=== PATIENT | female | born 1965 | race Caucasian/White ===

== ENCOUNTER → 2021-04-01 10:21 | Outpatient (BNVA) | payer BC, SELFPAY | PROVIDERS: Family Provider Internal Medicine; PCP Internal Medicine; Visit Provider Internal Medicine | DX: M48.9 Spondylopathy, unspecified (principal); D68.0 Von Willebrand disease; K58.0 Irritable bowel syndrome with diarrhea; Z00.00 Encounter for general adult medical examination without abnormal findings | CPT/HCPCS: 80053; 83550; 84443; 85049; 85384; 85610; 85730 ==

== ENCOUNTER 2021-06-10 15:29 | Outpatient (CLI) | payer BC, SELFPAY ==
--- NOTE | 2021-06-10 15:55 | MR_ITS ---
WS: [id number] MRI CERVICAL SPINE NONCONTRAST HISTORY: Chronic neck pain for 20 years. Bilateral arm tingling. COMPARISON: None available. Technique: Multiplanar, multisequence noncontrast imaging of the cervical spine. Posterior cervical alignment is normal. Disc desiccation throughout but most significant at C5-6 and C6-7. Hypertrophic osteophytes are noted most significant at C5-6. Additional disc protrusions are no adina centrally at T1-2, T2-3 and T3-4. The most significant at T3-4 with near contact on the ventral t hecal sac. Signal within the cervical cord is normal. Visualized posterior fossa is unremarkable. Craniocervical junction, C1 and C2 relationship, odontoid process and soft tissues are normal. C2-C3: No stenosis. Mild facet joint arthritis with marrow edema and a small amount of increased T2 s ignal surrounding the RIGHT facet joint. C3-C4: Normal. C4-C5: Normal. C5-C6: Diffuse osteophytic ridging with annular disc bulging. Osteophytes encroach upon the ventral t hecal sac effacing the CSF. Very minimal deformity of the ventral cervical cord. Disc osteophyte comp lexes extend into the neural foramen bilaterally, greatest on the LEFT. Mild central stenosis with mo derate bilateral foraminal stenosis, LEFT greater than RIGHT. C6-C7: Diffuse annular disc bulging and osteophytic ridging. Small disc osteophytes extend into the n eural foramen bilaterally. There is mild central and bilateral foraminal stenosis. Mild facet arthrit is. C7-T1: Mild annular disc bulge with a central disc protrusion. Disc osteophytes extend into the neura l foramen. Only mild bilateral foraminal stenosis. Paraspinal soft tissue are normal. MR/MR cervical spin wo con* [id number] IMPRESSION: 1. Mild central with moderate bilateral foraminal stenosis at C5-6. Disc osteo phyte contact on the ventral thecal sac and narrowing the foramina. Larger disc osteophyte in the LEFT foramen. 2. Mild central and bilateral foraminal stenosis at C6-7 due to disc and osteo phyte with no cord contact. 3. Mild foraminal stenosis at C7-T1. 4. Additional smaller central disc protrusions seen in the sagittal sequence a t T1-2, T2-3 and T3-4. Very minimal contact on the ventral thoracic cord at T3- 4. For further evaluation dedicated MRI of the thoracic spine could be obtained .
== END 2021-06-10 15:30 | disposition home or self-care (01) ==
PROVIDERS: PCP Internal Medicine; Visit Provider Internal Medicine
DX: G89.29 Other chronic pain (principal); M48.02 Spinal stenosis, cervical region; M25.78 Osteophyte, vertebrae; M48.03 Spinal stenosis, cervicothoracic region; M51.24 Other intervertebral disc displacement, thoracic region
CPT/HCPCS: 72141

== ENCOUNTER 2021-06-15 13:31 | Outpatient (CLI) | payer BC, SELFPAY ==
[2021-06-15 15:31] LABS: Basophils # 0.1 10^3/uL (0.0-0.1); Basophils % 0.7 %; Eosinophils # 0.3 10^3/uL (0.0-0.8); Hematocrit 43.2 % (37.0-47.0); Hemoglobin 14.2 g/dL (11.5-15.3); Lymphocytes # 3.7 10^3/uL (0.8-4.8); Lymphocytes % 26.8 %; Mean Corpuscular HGB Conc 32.9 g/dL (30.0-36.0); Mean Corpuscular Hemoglobin 30.5 pg (28.0-34.0); Mean Corpuscular Volume 92.9 fl (81-99); Mean Platelet Volume 9.3 fL (7.4-10.4); Monocytes # 0.8 10^3/uL (0.2-0.9); Monocytes % 6.1 %; Neutrophils # 8.82 10^3/uL (1.8-7.7); Nucleated Red Blood Cells % 0 %; Platelet Count 327 10^3/cmm (130-400); Red Blood Count 4.65 10^6/uL (4.1-5.3); Red Cell Distribution Width 13.6 % (12.1-15.1); White Blood Count 13.8 10^3/uL (4.0-10.0)
--- NOTE | 2021-06-15 18:44 | ONC CON_ITS ---
Dr. Cordero New Patient Note Patient: Winter Sheikh Unit #: [id number]: [id number] Dicatated By: Michael Cordero M.D.Date of Visit: Jun 15, 2021 Onc MED New Patient/Consult Referring Physician: Dr. Robe Valencia M.D. Chief Complaint: Von Willebrand's disease. History of Present Illness: This is a 56-year-old woman with known von Willebrand's disease. She was initially diagnosed with von Willebrand's disease around 1998. At the time she was living in [place], [place]. I do not have those records available. She had a prior history of easy bruising and heavy menstrual bleeding, and she also apparently had significant bleeding with her hysterectomy in 1992. She does not know the type of her von Willebrand's disease, but it would most likely be type I, as subsequent to the diagnosis she was given DDAVP prophylactically for procedures. She is being seen now because she has been undergoing evaluation by Dr. Hopper for neck problems, and she thinks she may be having surgery on her cervical spine. Her laboratory studies from 04/01/2021 included CBC showing hemoglobin 15.0 g, white blood cell count 8800, and platelet count 318,000. Her pro time was normal at 12.50 seconds with PTT mildly prolonged at 43.0 seconds and fibrinogen normal at 372 mg/dL. She says she is feeling fine. She does have some fatigue, but she has normal activity. ECOG score is 0. Appetite is variable, but her weight is stable. She has not had fever. She does have hot flashes, and she occasionally has sweating at night. She says she always has sinus drainage. She does not have sore throat or difficulty swallowing. She does not complain of cough, and she has not been having shortness of breath or chest pain. She occasionally has nausea. She has been taking pantoprazole for GERD. She has had chronic diarrhea associated with irritable bowel syndrome, but that seems to have resolved after starting on an oral iron supplement. She has no complaints with bladder function. She has joint pain in her hands and in her left knee. She has neck pain and she also has some soreness in her lower back. She has headaches at least once or twice a week. She has numbness in both hands. Past Medical History: Her medical history includes anxiety, anxiety/depression, bilateral carpal tunnel syndrome, chronic insomnia, degenerative arthritis/degenerative disease of the spine, gastroesophageal reflux disease, hyperlipidemia, iron deficiency anemia, irritable bowel syndrome, and von Willebrand's disease. She has a history of renal cell cancer. Past Surgical History: Her surgical/procedural history includes colonoscopy, arthroscopic left knee surgery in 2014, cholecystectomy in 2010, left nephrectomy in 2009, hysterectomy/bilateral salpingectomy-oophorectomy in 1992, and Caesarean section in 1988. Medications: Pantoprazole Sodium 1 Tablet (of 40 mg) Tablet, enteric coated Oral daily, tiZANidine HCl 1 Tablet (of 4 mg) Oral b.i.d., Zolpidem Tartrate 1 Tablet (of 10 mg) Oral at bedtime Allergies: Amoxicillin-Pot Clavulanate Social History: Ms. Sheikh is . She is employed by [employer], but she works from home. She has a history of smoking for 40 years, previously up to 1-1/2 packs of cigarettes daily. Beginning about 6 months ago she had cut down to 1/2 pack/day. She does not drink alcohol. Family History: Father had heart disease and COPD. He at age 72. Mother is still living at age 75. She has one sister who is in good health at age 54. Her maternal grandfather had lung cancer and her maternal grandmother had esophageal cancer. Patient is not aware of anyone in the family with von Willebrand's disease. Her only child, a daughter who is currently 33 years old, was tested and was found to be negative. Review Of Symptoms: Constitutional - She says she is feeling fine. She does have some fatigue, but she has normal activity. Appetite is somewhat variable, but her weight is stable. She has not had fever. She does have hot flashes and she occasionally has sweating at night. ECOG score is 0, Eyes - She is being followed for cataract in her left eye, ENMT - No hearing loss or tinnitus. She says she always has sinus drainage. No mouth sores. No sore throat or difficulty swallowing, Hematologic/Lymphatic - She does have some bruising, but not a lot. She has no other bleeding manifestations, Respiratory - No shortness of breath. No cough. No pleuritic pain or hemoptysis, Cardiovascular - No angina pain. No palpitations, Gastrointestinal - She occasionally has nausea.. No heartburn or acid reflux. She has had chronic diarrhea, but that seems to have resolved since she started an oral iron supplement. She has not been aware of any blood in the stool or black stools, Genitourinary (F) - No dysuria or hematuria. No urinary frequency. No urgency or incontinence, Musculoskeletal - She has arthritis pain in her knees and in her left knee. She also has having neck pain and she sometimes has soreness in her back, Integumentary - No skin rash or other skin changes, Neurologic - She has headache once or twice a week. No dizziness. She has numbness in both hands, Psychiatric - She has anxiety and depression. She has chronic insomnia. Vital Signs: Performed on Jun 15, 2021 14:22: 6, 0, 33.76 (HIGH), 1.85 sq.m, 62 in, 97 %, 83 /min, 18 /min, 135/80 mm(hg), 98.4 F, and 184.6 lbs (HIGH). Physical Examination: Constitutional - She appears to be in good general health, Eyes - Sclerae nonicteric. Conjunctivae clear, ENMT - No lesions noted in the oral cavity, Neck - No mass or thyromegaly, Hematologic/Lymphatic - No cervical, clavicular, or axillary adenopathy, Respiratory - Lungs are clear with good air movement bilaterally, Cardiovascular - Heart rhythm is regular. There is no murmur, gallop, or rub noted, Abdomen - Soft and non-tender. Liver and spleen are not enlarged. There is no abdominal mass or ascites noted and there is no inguinal adenopathy, Back/Spine - No spine or CVA tenderness noted, Extremities - No edema. Dorsalis pedis pulses are palpable bilaterally, Integumentary - No rashes. No suspicious skin lesions noted, Neurologic - No focal neurologic deficits noted. Problem List: 1. Von Willebrand's disease. 2. Iron deficiency anemia. 3. Hyperlipidemia. 4. Degenerative arthritis/degenerative disease of the spine. 5. GERD. 6. Irritable bowel syndrome. 7. History of renal cell cancer. 8. Chronic insomnia. 9. Anxiety/depression. Problems Addressed with this Encounter and Plan: Patient with known von Willebrand's disease. I do not have records indicate the type, but by history she has had mild disease, and it would most likely be type I. She will have additional laboratory studies today to include CBC and a von Willebrand's panel with multimer analysis. If the panel is consistent with type I disease, I will plan to give her a DDAVP challenge to verify response before ordering any preoperative prophylaxis. Signed By: Michael Cordero M.D. <<Signature on File>>
[2021-06-20 15:17] LABS: Factor Viii, Activity 69 % normal (50-180); Partial Thromboplastin Time, A 32 sec (23-32)
[2021-06-20 15:42] LABS: Von Willebrand Factor (Rcf) 117 % normal (42-200); Von Willebrand Factor Ag 129 % (50-217)
== END 2021-06-15 13:32 | disposition home or self-care (01) ==
LOC: ONCMED 13:37
PROVIDERS: PCP Internal Medicine; Visit Provider Internal Medicine Medical Oncology
DX: D68.0 Von Willebrand disease (principal); D50.9 Iron deficiency anemia, unspecified; F41.9 Anxiety disorder, unspecified; F32.A Depression, unspecified; K21.9 Gastro-esophageal reflux disease without esophagitis; E78.5 Hyperlipidemia, unspecified; M47.9 Spondylosis, unspecified; Z79.899 Other long term (current) drug therapy; Z85.528 Personal history of other malignant neoplasm of kidney
CPT/HCPCS: 36415; 85025; 85240; 85245; 85246; 85247; 99204

== ENCOUNTER → 2021-06-25 13:55 | Outpatient (BNVA) | payer BC, SELFPAY | PROVIDERS: PCP Internal Medicine; Referring Provider Internal Medicine; Visit Provider Orthopaedic Surgery | DX: M47.892 Other spondylosis, cervical region (principal) | CPT/HCPCS: 72050 ==

== ENCOUNTER → 2021-08-19 10:51 | Outpatient (BNVA) | payer BC, SELFPAY | PROVIDERS: PCP Internal Medicine; Referring Provider Orthopaedic Surgery; Visit Provider Specialist | DX: G56.00 Carpal tunnel syndrome, unspecified upper limb (principal) | CPT/HCPCS: 73110 ==

== ENCOUNTER 2022-01-13 09:05 | Outpatient (CLI) | payer BC, SELFPAY ==
[2022-01-13 10:09] LABS: Basophils # 0.1 10^3/uL (0.0-0.1); Basophils % 0.7 %; Eosinophils # 0.3 10^3/uL (0.0-0.8); Hemoglobin 14.2 g/dL (11.5-15.3); Lymphocytes # 4.1 10^3/uL (0.8-4.8); Mean Corpuscular Hemoglobin 31.1 pg (28.0-34.0); Mean Corpuscular Volume 94.1 fl (81-99); Mean Platelet Volume 9.1 fL (7.4-10.4); Monocytes # 0.7 10^3/uL (0.2-0.9); Monocytes % 6.3 %; Neutrophils # 5.75 10^3/uL (1.8-7.7); Neutrophils % 52.6 %; Nucleated Red Blood Cells % 0 %; Platelet Count 317 10^3/cmm (130-400); Red Blood Count 4.57 10^6/uL (4.1-5.3); Red Cell Distribution Width 13.6 % (12.1-15.1); White Blood Count 10.9 10^3/uL (4.0-10.0)
[2022-01-13 10:25] LABS: Partial Thromboplastin Time 35.1 SECONDS (23.9-36.7)
[2022-01-13 10:32] LABS: Slide Review Slide Review Perform
[2022-01-17 16:02] LABS: Factor VIII Activity Clotting 49 % normal (50-180)
[2022-01-17 16:32] LABS: Von Willebrand Factor AG 118 % (50-217); Von Willebrand Ristocetin(Rcf) 80 % normal (42-200)
== END 2022-01-13 09:06 | disposition home or self-care (01) ==
PROVIDERS: PCP Internal Medicine; Visit Provider Internal Medicine Medical Oncology
DX: D68.00 Von Willebrand disease, unspecified (principal)
CPT/HCPCS: 36415; 85025; 85240; 85245; 85246; 85730

== ENCOUNTER 2022-01-13 09:57 | Outpatient (CLI) | payer BC, SELFPAY | END 2022-01-13 09:58 | disposition home or self-care (01) | LOC: SPT 09:58 | PROVIDERS: PCP Internal Medicine; Visit Provider Specialist | DX: Z46.89 Encounter for fitting and adjustment of other specified devices (principal); G56.03 Carpal tunnel syndrome, bilateral upper limbs | CPT/HCPCS: 97760; L3908 ==

== ENCOUNTER 2022-01-29 05:38 | Day surgery (SDC) | payer BC, SELFPAY ==
[2022-01-28 09:56] VITALS: BMI 31.5
[2022-01-29] VITALS (7 sets, daily range): BP systolic 114–136; BP diastolic 72–97; PULSE 61–83; RESP 16–19; TEMP 36.1–36.6; O2SAT 93–98
[2022-01-29] MEDS: CELEcoxib 200 mg Capsule 400 MG PO (06:13)
[2022-01-29] MEDS: sodium chloride 0.9% 1,000 ML 30 ML IV (06:13)
--- NOTE | 2022-01-29 06:53 | P.HPUD_ITS ---
Surgery/Procedure H&P Update DATE OF PROCEDURE: January 29, 2022 DATE H&P PERFORMED: 01/13/22 H&P UPDATE INFORMATION: I have reviewed H&P completed within last 30 days, I have examined patient prior to procedure, No changes to prior documentation and H&P is in [facility] EMR on date indicated PREOP DIAGNOSIS: Left carpal tunnel syndrome PLANNED PROCEDURE: Operation Date: 01/29/22 07:00 Proposed Procedures p LEFT CARPAL TUNNEL RELEASE [id number],G56.00(Left) - Georgiana Sanotyo MD Related Problem List Diagnoses (1) Carpal tunnel syndrome, left:
[2022-01-29] MEDS: ceFAZolin 2,000 MG in sodium chloride 0.9% (plus) 50 ML 100 MG IV (07:03)
--- NOTE | 2022-01-29 07:30 | SUR.OPER ---
1087 asked Ayaka Perry RN about acetaminophen 1gm not given during preop, and nurse replied that she did not want it.
--- NOTE | 2022-01-29 07:43 | SUR.PREOP ---
Pre-operative Patient states she could not take Tylenol (ordered for pre-op) as she has history of Von Willebrand Disease and does not wish to take for this reason. Patient has allergy to Augmentin (vomiting), Ancef flagged for allergy. Dr. Santoyo called to verify order and ordered to give. Order placed and sent to patient.
--- NOTE | 2022-01-29 07:59 | ANES.PREANE2 ---
Pre-Anesthetic Assessment Height/Weight: Height 1.59 m Weight 79.379 kg Temp Pulse Resp BP Pulse Ox O2 Del Method 97.9 F 83 18 136/96 94 01/29/22 06:01 01/29/22 06:01 01/29/22 06:01 01/29/22 06:01 01/29/22 06:01 01/29/22 07:11 Preop Diagnosis: Left carpal tunnel syndrome Operation Date: 01/29/22 07:00 Proposed Procedures p LEFT CARPAL TUNNEL RELEASE [id number],G56.00(Left) - Georgiana Santoyo MD Familial anesthetic complications: none Was Beta Bill taken within 24 hours: N/A Was Clonidine taken within 24 hours: N/A Last intake: Intake Last Liquid Date 01/28/22 Last Liquid Time 01:30 Last Solid Date 01/28/22 Last Solid Time 22:30 Social No alcohol and No tobacco Exam alert, oriented x 3, clear to auscultation bilaterally and regular rate & rhythm Airway Submandibular: within normal limits Cervical ROM: within normal limits Mallampati: Class II Dentition: full CV/HEM Anemia Von Willebrand GI Gastroesophageal Reflux Disease Anesthetic Plan ASA status: 2 Anesthesia: Choice Medications/Allergies Home Medications Medication Instructions Recorded Confirmed Last Taken Type tizanidine 4 mg capsule 4 mg PO BID PRN muscle spasticity 05/28/21 01/29/22 01/28/22 20:30 Rx #180 caps zolpidem 10 mg tablet (Ambien) 10 mg PO .AT BEDTIME #30 tabs 11/02/21 01/29/22 01/28/22 20:30 Rx Bilateral Cock Up Splint #1 ea 01/13/22 01/13/22 Unknown Rx diphenhydramine HCl 25 mg tablet 50 mg PO BEDTIME PRN ALLERGIES 01/28/22 01/29/22 01/28/22 20:30 History (Benadryl Allergy) ferrous sulfate 325 mg (65 mg 325 mg PO DAILY 01/28/22 01/29/22 01/28/22 20:30 History iron) tablet (Iron (ferrous sulfate)) pantoprazole 40 mg tablet,delayed 40 mg PO DAILY 01/28/22 01/29/22 01/28/22 20:30 History release (Protonix) hydrocodone 5 mg-acetaminophen 325 1 tab PO Q4H PRN pain 7 days #30 01/29/22 Unknown Rx mg tablet tabs Allergies Allergy/AdvReac Type Severity Reaction Status Date / Time amoxicillin [From Augmentin] Allergy Mild ADR-Vomitin Verified 01/28/22 09:52 g clavulanic acid Allergy Mild ADR-Vomitin Verified 01/28/22 09:52 [From Augmentin] g Current Medications Generic Name Dose Route Start Last Admin Trade Name Freq PRN Reason Stop Dose Admin Sodium Chloride 1,000 mls @ 30 mls/hr 01/29/22 06:00 01/29/22 06:13 Sodium Chloride 0.9% IV 01/30/22 05:59 30 mls/hr .Q24H DANY Administration PFSH Anesthesia Medical History Bilateral carpal tunnel syndrome Chronic diarrhea Chronic pansinusitis Gastro-esophageal reflux disease without esophagitis Generalized anxiety disorder H/O malignant neoplasm of kidney 2008 Hyperlipidemia, unspecified Insomnia Iron deficiency anemia, unspecified Irritable bowel syndrome with diarrhea S/p nephrectomy LEFT- CANCER- 2008 Surgical History History of History of esophagogastroduodenoscopy (EGD) 07/06/2013- REFLUX ESOPHAGITIS, GASTRITIS S/P cholecystectomy S/P colonoscopy 07/06/2013- DIVERTICULOSIS 2009 S/P exploratory laparotomy S/P hysterectomy Family History Grandfather Cancer Grandmother Cancer Father Diabetes Hypertension Other Bleeding disorder Denies family history of Anesthesia complication Social History Smoking and tobacco status: current every day smoker History of recent travel: No Data Anesthesia Cardiac Studies: No Data to Display
--- NOTE | 2022-01-29 08:03 | P.OP_ITS ---
Operative Report Date of procedure: January 29, 2022 Pre-op diagnosis: Left carpal tunnel syndrome Post-op diagnosis: Left carpal tunnel syndrome Procedure done: Left carpal tunnel release Pathology: none sent Surgeon: Georgiana Santoyo Ocean Freight Forwarder: None Anesthesia: General (Per LMA, ASA 2) Estimated blood loss (mL): 3 Tourniquet time (min): 20 (At 250 mmHg) IV fluids (mL): 400 Urine output (mL): 0 (No Bustamante) Complications: None Findings: Severe compression accross the carpal canal Condition: stable Disposition: PACU Brief History: Winter Sheikh 56 year old female here today for left carpal tunnel release. She reports numbness, tingling and burning in her bilateral hands. She explains her symptoms are equal to both sides. The patient wished to proceed with left carpal tunnel release first as she feels it has the biggest impact on her activities of daily living. She would like to proceed with a right carpal tunnel release after she has recovered from the left. Procedure: The patient was brought to the operating theater. The patient had a general anesthesia per MAC, ASA 2. The tourniquet was elevated to 250 mmHg for a total tourniquet time of 20 minutes. The patient was also given Ancef 2 g preoperatively. The arm was then prepped and draped with DuraPrep in usual fashion with the arm draped free. A surgical pause was performed. At the time, the surgical pause, we confirmed the site and side of surgery. We also confirmed the patient's identity, appropriate and timely administration of preoperative antibiotics and preoperative surgical markings. An incision was then made along the thenar crease. The incision crossed the wri st joint in a curvilinear fashion. Dissection continued through skin and soft tissues using a scalpel. The palmaris longus was identified along with the transverse carpal ligament. Each of these was released carefully to avoid injury to the median nerve. We were able to dissect gently into the carpal canal which was noted to be quite tight with significant compression across the median nerve. The nerve was visualized and was an hourglass shape. The canal was subsequently palpated to assure there was no bony encroachment upon the canal. The canal was then palpated distally and proximally to assure that my small finger was passed easily without impingement. Finding this to be so, attention was directed to closure. The wound was irrigated with ropivacaine plain. It was then closed with 3-0 nylon in an interrupted mattress fashion. Sterile dressing was then placed consisting of Dermabond, OpSite, fluffed fluffs, sterile soft roll, and an Kehinde wrap. The tourniquet was released after 20 minutes. There were no complications. There were no specimens. The procedure was well tolerated. Plan is the patient will be discharged home. Related Problem List Diagnoses (1) Carpal tunnel syndrome, left:
--- NOTE | 2022-01-29 15:04 | ANE.PACU2 ---
Inpatient post-anesthesia follow up: Airway intact: Yes Vital signs: Temperature 97.6 F Pulse Rate 71 Respiratory Rate 16 Blood Pressure 128/97 Pulse Oximetry 96 Oxygen Delivery Me thod Room Air Oxygen Flow Rate 10 Fraction of Inspir ed Oxygen Hydration adequate: Yes Nausea and vomiting: No Pain level: 2 Mental status: Baseline
== END 2022-01-29 09:08 | disposition home or self-care (01) ==
PROVIDERS: PCP Internal Medicine; Visit Provider Specialist
PROC: (CPT 64721; principal; 2022-01-29 07:00)
DX: G56.02 Carpal tunnel syndrome, left upper limb (principal); F41.9 Anxiety disorder, unspecified; E78.5 Hyperlipidemia, unspecified; Z80.51 Family history of malignant neoplasm of kidney; K21.9 Gastro-esophageal reflux disease without esophagitis
CPT/HCPCS: 64721; J0690; J1100; J2250; J2405; J2704; J3010; J3490; J7030

== ENCOUNTER 2022-02-19 05:44 | Day surgery (SDC) | payer BC, SELFPAY ==
[2022-02-18 13:13] VITALS: BMI 32.9
[2022-02-19] VITALS (9 sets, daily range): BP systolic 115–154; BP diastolic 83–98; PULSE 60–74; RESP 12–18; TEMP 36.1–36.6; O2SAT 95–100
[2022-02-19] MEDS: sodium chloride 0.9% 1,000 ML 30 ML IV (06:18)
[2022-02-19] MEDS: CELEcoxib 200 mg Capsule 400 MG PO (06:24)
--- NOTE | 2022-02-19 06:33 | ANES.PREANE2 ---
Pre-Anesthetic Assessment Height/Weight: Height 1.57 m Weight 81.647 kg Temp Pulse Resp BP Pulse Ox O2 Del Method 97.6 F 71 18 146/97 96 02/19/22 06:09 02/19/22 06:09 02/19/22 06:09 02/19/22 06:09 02/19/22 06:09 02/19/22 06:05 Preop Diagnosis: Right carpal tunnel syndrome Operation Date: 02/19/22 07:00 Proposed Procedures p RIGHT CARPAL TUNNEL RELEASE [id number],G56.00(Right) - Georgiana Santoyo MD Familial anesthetic complications: None Was Beta Bill taken within 24 hours: N/A Was Clonidine taken within 24 hours: N/A Last intake: Intake Last Liquid Date 02/18/22 Last Liquid Time 22:30 Last Solid Date 02/18/22 Last Solid Time 20:30 Social Tobacco and No alcohol Exam alert, oriented x 3, clear to auscultation bilaterally and regular rate & rhythm Airway Mallampati: Class II Dentition: full CV/HEM vWF GI Gastroesophageal Reflux Disease Anesthetic Plan ASA status: 2 Anesthesia: General Risk of > 500 ml blood loss (7ml/kg in children): No Medications/Allergies Home Medications Medication Instructions Recorded Confirmed Last Taken Type tizanidine 4 mg capsule 4 mg PO BID PRN muscle spasticity 05/28/21 02/19/22 02/18/22 Rx #180 caps zolpidem 10 mg tablet (Ambien) 10 mg PO .AT BEDTIME #30 tabs 11/02/21 02/19/22 02/18/22 Rx Bilateral Cock Up Splint #1 ea 01/13/22 02/15/22 Unknown Rx diphenhydramine HCl 25 mg tablet 50 mg PO BEDTIME PRN ALLERGIES 01/28/22 02/19/22 02/18/22 History (Benadryl Allergy) ferrous sulfate 325 mg (65 mg 325 mg PO DAILY 01/28/22 02/19/22 02/18/22 History iron) tablet (Iron (ferrous sulfate)) pantoprazole 40 mg tablet,delayed 40 mg PO DAILY 01/28/22 02/19/22 02/18/22 History release (Protonix) Allergies Allergy/AdvReac Type Severity Reaction Status Date / Time amoxicillin [From Augmentin] Allergy Mild ADR-Vomitin Verified 02/15/22 09:07 g clavulanic acid Allergy Mild ADR-Vomitin Verified 02/15/22 09:07 [From Augmentin] g Current Medications Generic Name Dose Route Start Last Admin Trade Name Vu PRN Reason Stop Dose Admin Sodium Chloride 1,000 mls @ 30 mls/hr 02/19/22 06:15 02/19/22 06:18 Sodium Chloride 0.9% IV 02/20/22 06:14 30 mls/hr .Q24H DANY Administration PFSH Anesthesia Medical History Bilateral carpal tunnel syndrome Chronic diarrhea Chronic pansinusitis Gastro-esophageal reflux disease without esophagitis Generalized anxiety disorder H/O malignant neoplasm of kidney 2008 Hyperlipidemia, unspecified Insomnia Iron deficiency anemia, unspecified Irritable bowel syndrome with diarrhea S/p nephrectomy LEFT- CANCER- 2008 Surgical History History of History of esophagogastroduodenoscopy (EGD) 07/06/2013- REFLUX ESOPHAGITIS, GASTRITIS S/P cholecystectomy S/P colonoscopy 07/06/2013- DIVERTICULOSIS 2009 S/P exploratory laparotomy S/P hysterectomy Family History Grandfather Cancer Grandmother Cancer Father Diabetes Hypertension Other Bleeding disorder Denies family history of Anesthesia complication Social History Smoking and tobacco status: current every day smoker History of recent travel: No Data Anesthesia Cardiac Studies: No Data to Display
[2022-02-19] MEDS: ceFAZolin 2,000 MG in sodium chloride 0.9% (plus) 50 ML 100 MG IV (07:13)
--- NOTE | 2022-02-19 07:15 | W.PM.OPSUD ---
Surgery/Procedure H&P Update DATE OF PROCEDURE: February 19, 2022 DATE H&P PERFORMED: 02/15/22 H&P UPDATE INFORMATION: I have reviewed H&P completed within last 30 days, I have examined patient prior to procedure, No changes to prior documentation and H&P is in [facility] [place] on date indicated PREOP DIAGNOSIS: Right carpal tunnel syndrome PLANNED PROCEDURE: Operation Date: 02/19/22 07:00 Proposed Procedures p RIGHT CARPAL TUNNEL RELEASE [id number],G56.00(Right) - Georgiana Santoyo MD Related Problem List Diagnoses (1) Carpal tunnel syndrome on right:
--- NOTE | 2022-02-19 08:02 | P.OP_ITS ---
Operative Report Date of procedure: February 19, 2022 Pre-op diagnosis: Right carpal tunnel syndrome Post-op diagnosis: Right carpal tunnel syndrome Procedure done: Right carpal tunnel release Pathology: none sent Surgeon: Georgiana Santoyo Asbestos Worker Helper: None Anesthesia: General (Per LMA, ASA 2) Estimated blood loss (mL): 5 Tourniquet time (min): 22 (At 250 mmHg) IV fluids (mL): 550 Urine output (mL): 0 (No Bustamante) Complications: None Findings: Significant compression across the carpal canal with hourglass shape to the median nerve and fibrosis within the canal. The median nerve was adhered to the undersurface of the transverse carpal ligament. Condition: stable Disposition: PACU (Then to same-day surgery for discharge to home) Brief History: Winter Sheikh 56 year old female here today for right carpal tunnel release. She reports numbness, tingling and burning in her right hand. She has recovered very nicely from her left carpal tunnel release, and this is improved her quality of life and ability to perform activities of daily living. She has recovered from this and would like to proceed with right carpal tunnel release. Questions were answered in the office and consents were signed. In the preop holding area, the arm was marked. Procedure: The patient was brought to the operating theater. The patient had a general anesthesia per LMA, ASA 2. The tourniquet was elevated to 250 mmHg for a total tourniquet time of 22 minutes. The patient was also given Ancef 2 g preoperatively. The arm was then prepped and draped with DuraPrep in usual fashion with the arm draped free. A surgical pause was performed. At the time, the surgical pause, we confirmed the site and side of surgery. We also confirmed the patient's identity, appropriate and timely administration of preoperative antibiotics and preoperative surgical markings. An incision was then made along the thenar crease. The incision crossed the wris t joint in a curvilinear fashion. Dissection continued through skin and soft tissues using a scalpel. The palmaris longus was identified along with the transverse carpal ligament. Each of these was released carefully to avoid injury to the median nerve. We were able to dissect gently into the carpal canal which was noted to be quite tight with significant compression across the median nerve. The nerve was visualized and was an hourglass shape. Also, the nerve was noted to be fibrosed to the transverse carpal ligament. After release, the canal was subsequently palpated to assure there was no bony encroachment upon the canal.? The canal was then palpated distally and proximally to assure that my small finger was passed easily without impingement. Finding this to be so, attention was directed to closure. The wound was irrigated with ropivacaine plain. It was then closed with 3-0 nylon in an interrupted mattress fashion. Sterile dressing was then placed consisting of Dermabond, OpSite, fluffed fluffs, sterile soft roll, and an Kehinde wrap. The tourniquet was released after 20 minutes. There were no complications. There were no specimens. The procedure was well tolerated. Plan is the patient will be discharged home. Related Problem List Diagnoses (1) Carpal tunnel syndrome on right:
--- NOTE | 2022-02-19 14:01 | ANE.PACU2 ---
Inpatient post-anesthesia follow up: Airway intact: Yes Vital signs: Temperature 98 F Pulse Rate 65 Respiratory Rate 17 Blood Pressure 150/90 Pulse Oximetry 97 Oxygen Delivery Me thod Room Air Oxygen Flow Rate Fraction of Inspir ed Oxygen Hydration adequate: Yes Nausea and vomiting: No Pain level: 1 Mental status: Baseline
== END 2022-02-19 09:15 | disposition home or self-care (01) ==
PROVIDERS: PCP Internal Medicine; Visit Provider Specialist
PROC: (CPT 64721; principal; 2022-02-19 07:00)
DX: G56.01 Carpal tunnel syndrome, right upper limb (principal); K21.9 Gastro-esophageal reflux disease without esophagitis; E78.5 Hyperlipidemia, unspecified; F17.210 Nicotine dependence, cigarettes, uncomplicated
CPT/HCPCS: 64721; J0690; J1100; J2405; J2704; J3010; J3490; J7030

== ENCOUNTER → 2023-07-10 12:15 | Outpatient (BNVA) | payer BC, SELFPAY | PROVIDERS: PCP Internal Medicine; Visit Provider Nurse Practitioner | DX: M79.671 Pain in right foot (principal) | CPT/HCPCS: 73610; 73630 ==

== ENCOUNTER 2024-04-05 10:39 | Outpatient (CLI) | payer BC, SELFPAY ==
--- NOTE | 2024-04-05 10:44 | MM_ITS ---
WS: [id number] SCREENING DIGITAL TOMOSYNTHESIS MAMMOGRAM WITH CAD HISTORY: SCREENING COMPARISON: 01/03/2015 Bilateral CC and MLO with tomosynthesis views submitted. Synthetic mammography reviewed. Computer aid ed detection analyzed. Breast composition: The breasts are almost entirely fatty. No suspicious masses, microcalcifications or architectural distortion. Benign calcifications in the posterior medial LEFT breast. MM/MM scr BI tomosynthesis [id number] IMPRESSION: BI-RADS: 2 - Benign. FOLLOW UP: 1 Year Follow-up
== END 2024-04-05 10:40 | disposition home or self-care (01) ==
LOC: RAD 10:41
PROVIDERS: PCP Internal Medicine; Visit Provider Internal Medicine
DX: Z12.31 Encounter for screening mammogram for malignant neoplasm of breast (principal); R92.313 Mammographic fatty tissue density, bilateral breasts; R92.1 Mammographic calcification found on diagnostic imaging of breast
CPT/HCPCS: 77063; 77067